=== PATIENT | male | born 1960 | race Caucasian/White ===

== ENCOUNTER 2022-11-03 09:48 | Outpatient (CLI) | payer OTHER | END 2022-11-03 09:49 | disposition home or self-care (01) | LOC: CSHWCC 09:48 | PROVIDERS: ATTEND Nurse Practitioner Family | DX: L98.492 Non-pressure chronic ulcer of skin of other sites with fat layer exposed (principal) ==

== ENCOUNTER 2023-09-17 12:09 | Outpatient (CLI) | payer OTHER | END 2023-09-17 12:10 | disposition home or self-care (01) | LOC: CSHWCC 12:09 | PROVIDERS: ATTEND Nurse Practitioner Family | DX: L89.43 Pressure ulcer of contiguous site of back, buttock and hip, stage 3 (principal); E27.1 Primary adrenocortical insufficiency | CPT/HCPCS: 87070; 87205; 97597; 97598; 99214; G0463 ==

== ENCOUNTER 2023-09-21 13:59 | Inpatient (IN) | payer OTHER ==
[2023-09-21] MEDS ORDERED: Hydrocortisone Sod Succ/PF 100 mg/2 ml Vial ONE (14:17)
[2023-09-21] MEDS ORDERED: fentaNYL 50 mcg/mL 1 mL Vial ONE (14:17)
[2023-09-21 14:48] LABS: ALT (SGPT) 41 U/L (8-55); AST (SGOT) 35 U/L (5-34); Albumin 2.5 g/dL (3.4-4.8); Alkaline Phosphatase 85 U/L (40-110); Anion Gap 12 mmol/L (10-20); BUN (Urea Nitrogen) 49 mg/dL (8.4-25.7); Bilirubin, Total 1.2 mg/dL (0.2-1.2); Calc. Creatinine Clearance 0 mL/min (70-130); Calcium 7.1 mg/dL (7.8-10.44); Carbon Dioxide 20 mmol/L (23-31); Chloride 105 mmol/L (98-107); Estimated GFR 21; Globulin 2.7 g/dL (2.4-3.5); Glucose 83 mg/dL (80-115); Potassium 4.4 mmol/L (3.5-5.1); Protein, Total 5.2 g/dL (5.8-8.1); Sodium 133 mmol/L (136-145)
[2023-09-21 15:36] LABS: #Monocytes 0.4 10x3/uL (0.0-1.1); #Neutrophils 3.2 10x3/uL (1.5-8.4); %Basophils 0.2 % (0.0-2.0); %Eosinophils 0.9 % (0.0-6.0); %Lymphocytes 14.3 % (18.0-47.0); %Monocytes 9.6 % (0.0-10.0); %Neutrophils 74.8 % (40.0-75.0); Hematocrit 32.2 % (38.8-50.0); Hemoglobin 10.7 g/dL (13.5-17.5); Mean Corpuscular HGB CONC 33.2 g/dL (32.0-36.0); Mean Corpuscular Hemoglobin 29.9 pg (27.0-33.0); Mean Corpuscular Volume 89.9 fl (81.2-95.1); Mean Platelet Volume 9.9 fl (7.4-10.4); Platelet Count 55 10x3/uL (150-450); RBC Distribution Width 16.3 % (11.5-14.5); Red Blood Cell (RBC) Count 3.58 10x6/uL (4.32-5.72); White Blood Cell (WBC) Count 4.3 10x3/uL (3.5-10.5)
[2023-09-21] MEDS ORDERED: Ondansetron ODT 4 MG TAB PO PRN (16:49)
[2023-09-21] MEDS ORDERED: Acetaminophen 325 MG TAB PO PRN (16:49)
[2023-09-21] MEDS ORDERED: Acetaminophen 650 MG Suppository PR PRN (16:49)
[2023-09-21] MEDS ORDERED: Ondansetron PF 4 MG/2 ML Vial IVP PRN (16:49)
[2023-09-21 17:53] VITALS: BMI 30.5
[2023-09-21] MEDS: cefTRIAXone\\ROCEPHIN 1 GM in Sodium Chloride 0.9% 100 ML IVPB SCH (18:41)
[2023-09-21] MEDS: Sodium Chloride 0.9% 1,000 ML IV SCH (18:41)
[2023-09-21 20:14] LABS: Bilirubin Neg (Negative); Blood, Urine 150 (Negative); Clarity Clear (Clear); Glucose, Urine (Dipstick) Normal (Negative); Ketone, Urine Negative (Negative); Leukocyte 500 (Negative); Nitrite Negative (Negative); Protein, Urine (Dipstick) 30 mg/dl (Neg-Trace); Specific Gravity, Urine 1.015 (1.005-1.030); Urobilinogen Normal mg/dL (Less than 2)
[2023-09-21 20:35] LABS: Bacteria/HPF 1+ HPF (None Seen); RBC/HPF 0-3 HPF (0-3); Squamous Epithelial 0-3 HPF (0-3)
[2023-09-21] MEDS: Hydrocortisone 10 mg Tablet PO SCH (22:12)
[2023-09-21] MEDS: Cyclobenzaprine 10 MG TAB PO SCH (23:03)
[2023-09-22 03:59] LABS: #Monocytes 0.3 10x3/uL (0.0-1.1); #Neutrophils 2.2 10x3/uL (1.5-8.4); %Eosinophils 0.3 % (0.0-6.0); %Monocytes 8.7 % (0.0-10.0); %Neutrophils 71.7 % (40.0-75.0); Hemoglobin 9.8 g/dL (13.5-17.5); Mean Corpuscular HGB CONC 32.7 g/dL (32.0-36.0); Mean Corpuscular Hemoglobin 29.6 pg (27.0-33.0); Mean Corpuscular Volume 90.6 fl (81.2-95.1); Mean Platelet Volume 10.2 fl (7.4-10.4); Platelet Count 44 10x3/uL (150-450); RBC Distribution Width 16.1 % (11.5-14.5); Red Blood Cell (RBC) Count 3.31 10x6/uL (4.32-5.72); White Blood Cell (WBC) Count 3.1 10x3/uL (3.5-10.5)
[2023-09-22 04:04] LABS: Anion Gap 11 mmol/L (10-20); BUN (Urea Nitrogen) 49 mg/dL (8.4-25.7); Calc. Creatinine Clearance 29 mL/min (70-130); Carbon Dioxide 19 mmol/L (23-31); Chloride 106 mmol/L (98-107); Estimated GFR 22; Glucose 103 mg/dL (80-115); Potassium 4.3 mmol/L (3.5-5.1); Sodium 132 mmol/L (136-145)
[2023-09-22 04:10] LABS: Calcium 6.8 mg/dL (7.8-10.44)
[2023-09-22 04:27] LABS: Large Platelets SLIGHT (None Seen); Platelet Adequacy Comment Appears Decreased; RBC Morph Comment Within Normal Limits
[2023-09-22] MEDS: Levothyroxine Sodium 50 MCG TAB PO SCH (06:07)
[2023-09-22] MEDS: Sodium Chloride 0.9% 1,000 ML IV SCH (09:03)
[2023-09-22] MEDS: hydrALAZINE 25 MG TAB PO SCH (09:04)
[2023-09-22] MEDS: Carvedilol 6.25 MG TAB PO SCH (09:05)
[2023-09-22] MEDS: Calcium Carbonate 500 MG ChewTAB PO SCH (09:05)
[2023-09-22] MEDS: Hydrocortisone 10 mg Tablet PO SCH ×2 (09:05→22:12)
[2023-09-22] MEDS: Tamsulosin HCl 0.4 MG CAP PO SCH ×2 (13:09→22:11)
[2023-09-22] MEDS: HYDROcodone/Acetaminophen 7.5/325 mg Tablet PO PRN (13:14)
[2023-09-23 04:56] LABS: #Eosinphils 0.1 10x3/uL (0.0-0.5); #Monocytes 0.1 10x3/uL (0.0-1.1); #Neutrophils 1.7 10x3/uL (1.5-8.4); %Eosinophils 2.1 % (0.0-6.0); %Lymphocytes 19.1 % (18.0-47.0); %Monocytes 5.9 % (0.0-10.0); %Neutrophils 72.5 % (40.0-75.0); Hematocrit 29.6 % (38.8-50.0); Hemoglobin 9.5 g/dL (13.5-17.5); Mean Corpuscular HGB CONC 32.1 g/dL (32.0-36.0); Mean Corpuscular Hemoglobin 29.4 pg (27.0-33.0); Mean Corpuscular Volume 91.6 fl (81.2-95.1); Mean Platelet Volume 11.2 fl (7.4-10.4); Platelet Count 43 10x3/uL (150-450); RBC Distribution Width 16.3 % (11.5-14.5); Red Blood Cell (RBC) Count 3.23 10x6/uL (4.32-5.72); White Blood Cell (WBC) Count 2.4 10x3/uL (3.5-10.5)
[2023-09-23 05:10] LABS: Phosphorus 3.4 mg/dL (2.3-4.7)
[2023-09-23 05:11] LABS: Anion Gap 11 mmol/L (10-20); BUN (Urea Nitrogen) 50 mg/dL (8.4-25.7); Calc. Creatinine Clearance 31 mL/min (70-130); Calcium 7.5 mg/dL (7.8-10.44); Carbon Dioxide 17 mmol/L (23-31); Chloride 110 mmol/L (98-107); Estimated GFR 24; Glucose 71 mg/dL (80-115); Potassium 4.5 mmol/L (3.5-5.1); Sodium 133 mmol/L (136-145)
[2023-09-23] MEDS: Hydrocortisone 10 mg Tablet PO SCH ×2 (08:17→13:14)
[2023-09-23] MEDS: Cholecalciferol 1,000 UNITS (25 MCG) TAB PO SCH (08:17)
[2023-09-24 04:36] LABS: Anion Gap 13 mmol/L (10-20); BUN (Urea Nitrogen) 48 mg/dL (8.4-25.7); Calc. Creatinine Clearance 33 mL/min (70-130); Calcium 7.9 mg/dL (7.8-10.44); Carbon Dioxide 14 mmol/L (23-31); Chloride 112 mmol/L (98-107); Estimated GFR 26; Glucose 76 mg/dL (80-115); Sodium 134 mmol/L (136-145)
[2023-09-24 04:42] LABS: Potassium 4.9 mmol/L (3.5-5.1)
[2023-09-24 04:44] LABS: Hematocrit 29.4 % (38.8-50.0); Hemoglobin 9.5 g/dL (13.5-17.5); Mean Corpuscular HGB CONC 32.3 g/dL (32.0-36.0); Mean Corpuscular Hemoglobin 29.6 pg (27.0-33.0); Mean Corpuscular Volume 91.6 fl (81.2-95.1); Platelet Count 34 10x3/uL (150-450); RBC Distribution Width 16.2 % (11.5-14.5); Red Blood Cell (RBC) Count 3.21 10x6/uL (4.32-5.72); White Blood Cell (WBC) Count 1.8 10x3/uL (3.5-10.5)
[2023-09-24 04:47] LABS: MDiff Complete? YES
[2023-09-24 05:54] LABS: Band 13 % (5-11); Lymphocytes 28 % (21-51); Monocytes 4 % (0-10); Neutrophil 54 % (42-75)
[2023-09-24 05:57] LABS: Anisocytosis SLIGHT = 6-15 cells (100X) (0-5/hpf); Microcytosis SLIGHT = 6-15 cells (100X) (0-5/hpf)
[2023-09-24 06:01] LABS: Platelet Adequacy Comment Appears Decreased
[2023-09-24 06:04] LABS: Reflex for Review?? YES
[2023-09-24] MEDS: Sodium Bicarbonate Tab 325 MG TAB PO SCH (08:59)
[2023-09-24] MEDS: Sodium Chloride 0.9% 1,000 ML IV SCH (09:47)
[2023-09-24] MEDS: Cyclobenzaprine 10 MG TAB PO SCH (12:33)
[2023-09-24] MEDS: HYDROcodone/Acetaminophen 7.5/325 mg Tablet PO PRN (14:44)
[2023-09-24] MEDS: Senokot S 8.6-50 MG TAB PO SCH ×2 (19:20→20:04)
[2023-09-24] MEDS: Magnesium Citrate 300 ML BOT PO SCH (19:21)
[2023-09-25 05:51] LABS: #Monocytes 0.2 10x3/uL (0.0-1.1); #Neutrophils 2.1 10x3/uL (1.5-8.4); %Lymphocytes 20.5 % (18.0-47.0); %Monocytes 7.1 % (0.0-10.0); %Neutrophils 71.1 % (40.0-75.0); Hematocrit 27.2 % (38.8-50.0); Hemoglobin 8.8 g/dL (13.5-17.5); Mean Corpuscular HGB CONC 32.4 g/dL (32.0-36.0); Mean Corpuscular Hemoglobin 29.7 pg (27.0-33.0); Mean Corpuscular Volume 91.9 fl (81.2-95.1); Mean Platelet Volume 10.3 fl (7.4-10.4); Platelet Count 40 10x3/uL (150-450); RBC Distribution Width 16.5 % (11.5-14.5); Red Blood Cell (RBC) Count 2.96 10x6/uL (4.32-5.72)
[2023-09-25 06:06] LABS: Anion Gap 10 mmol/L (10-20); BUN (Urea Nitrogen) 56 mg/dL (8.4-25.7); Calc. Creatinine Clearance 27 mL/min (70-130); Calcium 8.3 mg/dL (7.8-10.44); Carbon Dioxide 19 mmol/L (23-31); Chloride 111 mmol/L (98-107); Estimated GFR 21; Glucose 114 mg/dL (80-115); Potassium 5.2 mmol/L (3.5-5.1); Sodium 135 mmol/L (136-145)
[2023-09-26 05:34] LABS: Anion Gap 11 mmol/L (10-20); BUN (Urea Nitrogen) 53 mg/dL (8.4-25.7); Calc. Creatinine Clearance 32 mL/min (70-130); Calcium 8.6 mg/dL (7.8-10.44); Carbon Dioxide 17 mmol/L (23-31); Chloride 113 mmol/L (98-107); Estimated GFR 25; Glucose 125 mg/dL (80-115); Potassium 4.4 mmol/L (3.5-5.1); Sodium 137 mmol/L (136-145)
[2023-09-26 05:35] LABS: Hematocrit 26.8 % (38.8-50.0); Hemoglobin 8.8 g/dL (13.5-17.5); Mean Corpuscular HGB CONC 32.8 g/dL (32.0-36.0); Mean Corpuscular Hemoglobin 29.5 pg (27.0-33.0); Mean Corpuscular Volume 89.9 fl (81.2-95.1); Mean Platelet Volume 10.6 fl (7.4-10.4); Platelet Count 39 10x3/uL (150-450); RBC Distribution Width 16.4 % (11.5-14.5); Red Blood Cell (RBC) Count 2.98 10x6/uL (4.32-5.72); White Blood Cell (WBC) Count 1.9 10x3/uL (3.5-10.5)
[2023-09-26 05:51] LABS: MDiff Complete? YES
[2023-09-26 05:58] LABS: Band 17 % (5-11); Eosinophils 3 % (0-10); Lymphocytes 21 % (21-51); Monocytes 8 % (0-10); Neutrophil 51 % (42-75)
[2023-09-26 06:02] LABS: Hypochromia SLIGHT = 6-15 cells (100X) (0-5/hpf); Macrocytosis SLIGHT = 6-15 cells (100X) (0-5/hpf); Platelet Adequacy Comment Platelets Decreased; Toxic Granulation SLIGHT
[2023-09-26 06:03] LABS: Reflex for Review?? YES
[2023-09-26] MEDS: Cyclobenzaprine 10 MG TAB PO PRN (11:51)
[2023-09-27 03:47] LABS: Anion Gap 10 mmol/L (10-20); BUN (Urea Nitrogen) 58 mg/dL (8.4-25.7); Calc. Creatinine Clearance 31 mL/min (70-130); Carbon Dioxide 18 mmol/L (23-31); Chloride 112 mmol/L (98-107); Estimated GFR 24; Glucose 101 mg/dL (80-115); Potassium 5.2 mmol/L (3.5-5.1); Sodium 135 mmol/L (136-145)
[2023-09-27 08:08] LABS: Bilirubin Neg (Negative); Blood, Urine 250 (Negative); Glucose, Urine (Dipstick) Normal (Negative); Ketone, Urine Negative (Negative); Leukocyte 500 (Negative); Nitrite Negative (Negative); Protein, Urine (Dipstick) 30 mg/dl (Neg-Trace); Urobilinogen Normal mg/dL (Less than 2)
[2023-09-27 08:18] LABS: Clarity Slightly Cloudy (Clear)
[2023-09-27 08:27] LABS: Renal Epithelial 0-3 HPF (None Seen)
[2023-09-27] MEDS ORDERED: EPOETIN ALFA-EPBX (ESRD) 4,000 UNITS/ML VIAL SC SCH (09:00)
[2023-09-27] MEDS: EPOETIN ALFA-EPBX (ESRD) 10,000 UNITS/ML VIAL SC SCH (09:16)
[2023-09-27] MEDS: Ferrous Sulfate 325 MG TAB PO SCH (09:19)
[2023-09-27] MEDS: Albumin 25% 25 GM (100 mL) BOT IVPB SCH (13:13)
[2023-09-28] MEDS: Mometasone/Formoterol 200/5 60 PUFF INH SCH (03:08)
[2023-09-28 04:05] LABS: Hematocrit 25.7 % (38.8-50.0); Hemoglobin 8.4 g/dL (13.5-17.5); MDiff Complete? YES; Mean Corpuscular HGB CONC 32.7 g/dL (32.0-36.0); Mean Corpuscular Hemoglobin 29.3 pg (27.0-33.0); Mean Corpuscular Volume 89.5 fl (81.2-95.1); Mean Platelet Volume 10.2 fl (7.4-10.4); Platelet Count 44 10x3/uL (150-450); RBC Distribution Width 16.3 % (11.5-14.5); Red Blood Cell (RBC) Count 2.87 10x6/uL (4.32-5.72); White Blood Cell (WBC) Count 1.5 10x3/uL (3.5-10.5)
[2023-09-28 04:11] LABS: Anion Gap 12 mmol/L (10-20); BUN (Urea Nitrogen) 56 mg/dL (8.4-25.7); Calc. Creatinine Clearance 34 mL/min (70-130); Calcium 9.8 mg/dL (7.8-10.44); Carbon Dioxide 17 mmol/L (23-31); Chloride 114 mmol/L (98-107); Estimated GFR 27; Glucose 76 mg/dL (80-115); Potassium 4.2 mmol/L (3.5-5.1); Sodium 139 mmol/L (136-145)
[2023-09-28] MEDS: hydrALAZINE 20 MG/ML VIAL SLOW IVP SCH (04:14)
[2023-09-28 04:48] LABS: Band 11 % (5-11); Lymphocytes 33 % (21-51); Monocytes 9 % (0-10); Neutrophil 47 % (42-75)
[2023-09-28 04:52] LABS: Anisocytosis SLIGHT = 6-15 cells (100X) (0-5/hpf); Hypochromia SLIGHT = 6-15 cells (100X) (0-5/hpf)
[2023-09-28 04:53] LABS: Platelet Adequacy Comment Appears Decreased
[2023-09-28] MEDS: HYDROcodone/Acetaminophen 7.5/325 mg Tablet PO SCH (05:17)
[2023-09-28 05:27] LABS: Toxic Granulation SLIGHT
[2023-09-28] MEDS ORDERED: Ipratropium/Albuterol 3 ML NEB NEB PRN (08:12)
[2023-09-28] MEDS: Carvedilol 12.5 MG TAB PO SCH (08:47)
[2023-09-28] MEDS: hydrALAZINE 25 MG TAB PO SCH (08:48)
[2023-09-28] MEDS: NIFEdipine XL 30 MG ER.TAB PO SCH (08:48)
[2023-09-28] MEDS ORDERED: hydrALAZINE 25 MG TAB PO SCH (09:00)
[2023-09-28] MEDS: Ipratropium/Albuterol 3 ML NEB NEB SCH ×3 (09:00→19:00)
[2023-09-28] MEDS: Albumin 25% 25 GM (100 mL) BOT IVPB SCH (11:24)
[2023-09-28 16:41] LABS: Actual Bicarbonate (HCO3a) 18.8 mEq/L (22-28); Analyzer IN Cardio CS ER; Calcium, Ionized (arterial) 1.33 mmol/L (1.12-1.30); Carboxyhemoglobin (COHb) 0.1 gm% (0.0-3.0); Hematocrit-ABG 29 % (42.0-52.0); O2 Tension (PaO2), arterial 47.4 mmHg (> 80.0); Potassium - ABG Lab 4.27 mmol/L (3.70-5.30); Puncture Site RRA; pH, Arterial 7.302 (7.35-7.45)
[2023-09-28] MEDS ORDERED: Cyclobenzaprine 10 MG TAB PO PRN (19:00)
[2023-09-28 19:11] LABS: Influenza A by NAA Not Detected (NotDetected); Influenza B by NAA Not Detected (NotDetected); SARS-CoV-2 NAA Rapid Test Not Detected (NotDetected)
[2023-09-28 19:48] LABS: Anion Gap 12 mmol/L (10-20); BUN (Urea Nitrogen) 55 mg/dL (8.4-25.7); Calc. Creatinine Clearance 31 mL/min (70-130); Calcium 9.8 mg/dL (7.8-10.44); Carbon Dioxide 18 mmol/L (23-31); Chloride 115 mmol/L (98-107); Estimated GFR 24; Glucose 97 mg/dL (80-115); Potassium 4.5 mmol/L (3.5-5.1); Sodium 140 mmol/L (136-145)
[2023-09-28 19:55] LABS: Hematocrit 21.7 % (38.8-50.0); Mean Corpuscular HGB CONC 32.3 g/dL (32.0-36.0); Mean Corpuscular Hemoglobin 29.4 pg (27.0-33.0); Mean Corpuscular Volume 91.2 fl (81.2-95.1); Mean Platelet Volume 10.6 fl (7.4-10.4); RBC Distribution Width 16.6 % (11.5-14.5); Red Blood Cell (RBC) Count 2.38 10x6/uL (4.32-5.72); White Blood Cell (WBC) Count 1.9 10x3/uL (3.5-10.5)
[2023-09-28 19:56] LABS: Platelet Count 37 10x3/uL (150-450)
[2023-09-28 20:00] LABS: Troponin I 0.216 ng/mL (< 0.028)
[2023-09-28 20:06] LABS: MDiff Complete? YES
[2023-09-28 20:09] LABS: Band 5 % (5-11); Eosinophils 1 % (0-10); Lymphocytes 29 % (21-51); Monocytes 2 % (0-10); Neutrophil 63 % (42-75)
[2023-09-28 20:11] LABS: Anisocytosis SLIGHT = 6-15 cells (100X) (0-5/hpf); Hypochromia SLIGHT = 6-15 cells (100X) (0-5/hpf); Polychromasia SLIGHT = 2-3 cells (100X) (0-2/hpf)
[2023-09-28 20:12] LABS: Basophilic Stippling SLIGHT = 1-2 cells (100X) (None Seen); Platelet Adequacy Comment Appears Decreased
[2023-09-28] MEDS: Hydrocortisone Sod Succ/PF 100 mg/2 ml Vial IVP SCH (22:44)
[2023-09-28 22:50] VITALS: BP 126/61
[2023-09-28 23:23] VITALS: TEMP 98
[2023-09-28] MEDS: Furosemide 100 MG (10 mL) VIAL SLOW IVP SCH (23:48)
[2023-09-29] MEDS ORDERED: Hydrocortisone Sod Succ/PF 100 mg/2 ml Vial IVP SCH (07:00)
[2023-09-29 07:10] LABS: Actual Bicarbonate (HCO3v) 19.1 mEq/L (22-28); Analyzer IN Cardio CS ER; Base Excess -5.4 mEq/L (-2 - +2); Calcium, Ionized (venous) 1.39 mmol/L (1.16-1.32); Chloride (VBG) 112 mmol/L (98-106); Hematocrit-VBG 22 % (42.0-52.0); Hemoglobin (Hb) 7.5 g/dL (13.1-17.2); Potassium (VBG) 4.45 mmol/L (3.70-5.30); Puncture Site Other Site; RapidComm Collect By Lab Tech; Sodium 138 mmol/L (133-146)
[2023-09-29] MEDS ORDERED: Folic Acid/Vit B Comp W-C PO SCH (09:00)
== END 2023-09-29 00:35 | disposition left against medical advice (07) | DRG 682 ==
LOC: CSHERS 13:59 → CSHTELE 15:57
PROVIDERS: ADMIT Internal Medicine; ATTEND Internal Medicine
PROC: 30233J1 Transfusion of Nonautologous Serum Albumin into Peripheral Vein, Percutaneous Approach (ICD-10-PCS; 2023-09-27)
PROC: 4A133R1 Monitoring of Arterial Saturation, Peripheral, Percutaneous Approach (ICD-10-PCS; principal; 2023-09-28)
DX: N17.9 Acute kidney failure, unspecified (principal); I21.A1 Myocardial infarction type 2; J96.01 Acute respiratory failure with hypoxia; N39.0 Urinary tract infection, site not specified; E27.1 Primary adrenocortical insufficiency; N18.9 Chronic kidney disease, unspecified; M54.9 Dorsalgia, unspecified; G89.29 Other chronic pain; I12.9 Hypertensive chronic kidney disease with stage 1 through stage 4 chronic kidney disease, or unspecified chronic kidney disease; D69.6 Thrombocytopenia, unspecified; E83.51 Hypocalcemia; R33.9 Retention of urine, unspecified; R53.1 Weakness; N40.0 Benign prostatic hyperplasia without lower urinary tract symptoms; D72.819 Decreased white blood cell count, unspecified; E87.70 Fluid overload, unspecified; Z87.891 Personal history of nicotine dependence; R40.0 Somnolence; D64.9 Anemia, unspecified; Z79.899 Other long term (current) drug therapy; Z79.890 Hormone replacement therapy; Z98.890 Other specified postprocedural states; Z90.49 Acquired absence of other specified parts of digestive tract
CPT/HCPCS: 36415; 36600; 71045; 72131; 72148; 76770; 80048; 80053; 81001; 82306; 82805; 83735; 83880; 83970; 84100; 84145; 84484; 85025; 85060; 86140; 86850; 86900; 86901; 87086; 93306; 93970; 94640; 96361; 96374; 97139; J0360; J0696; J1720; J3010; J3490; J7050; J7620; P9047; Q5105